=== PATIENT | female | born 1965 | race Caucasian/White ===

== ENCOUNTER 2018-11-21 06:44 | Day surgery (SDC) | payer MEDICAID ==
[2018-11-21] MEDS ORDERED: fentaNYL 100 MCG/2 ML SDV ONE (06:57)
[2018-11-21] MEDS ORDERED: Midazolam 1 MG/ML 2 ML SDV ONE (06:57)
[2018-11-21] MEDS ORDERED: Propofol 200 MG/20 ML SDV ONE (06:57)
[2018-11-21] MEDS ORDERED: Lactated Ringers 1,000 ML IV SCH (07:00)
--- NOTE | 2018-11-21 13:17 | OR ---
DATE OF PROCEDURE: 11/21/2018 SURGEON: Julio C Jeffries MD PREOPERATIVE DIAGNOSIS: Colon cancer screening. POSTOPERATIVE DIAGNOSIS: Small rectal polyp. PROCEDURE PERFORMED: Colonoscopy to the cecum with biopsy resection of small rectal polyp. ANESTHESIA: IV anesthesia with monitored anesthesia care. INDICATION: This 53-year-old white female is referred for a screening colonoscopy. This is her first colonoscopic exam. I counseled her for the procedure, including risks and alternatives, and she gave her informed consent to proceed. DESCRIPTION OF PROCEDURE: The patient was placed in the left lateral decubitus position. IV anesthesia was administered by the Anesthesia Service. Time-out was held. A rectal exam was performed, which was unremarkable. The flexible video Olympus colonoscope was introduced through her anus, up her rectum, and out her colon all the way to the cecum. Once the cecum was reached, the scope was slowly withdrawn examining the mucosa throughout. No mucosal abnormalities were noted until we reached the rectum. Here, a small polyp was seen which was removed with a single bite of the biopsy forceps. The scope was retroflexed in the rectum with the distal rectum appearing unremarkable. The scope was straightened and removed. She tolerated the procedure well. Julio C Jeffries MD /[id number]
== END 2018-11-21 09:27 | disposition home or self-care (01) ==
LOC: JP.SDS 06:44
PROVIDERS: ATTEND Surgery
DX: Z12.11 Encounter for screening for malignant neoplasm of colon (principal); K62.1 Rectal polyp; E11.9 Type 2 diabetes mellitus without complications; F17.200 Nicotine dependence, unspecified, uncomplicated; Z91.09 Other allergy status, other than to drugs and biological substances
CPT/HCPCS: 45380; J2250; J2704; J3010; J7120; 88305